=== PATIENT | female | born 1955 | race African-American/Black ===

== ENCOUNTER 2021-05-23 07:04 | Day surgery (SDC) | payer BC ==
[2021-05-21 14:11] VITALS: BMI 30.2
[2021-05-23] MEDS ORDERED: ceFAZolin SODIUM 1 GM VIAL ONE ×3 (07:22→22:49)
[2021-05-23] MEDS ORDERED: VANCOMYCIN 1,000 MG VIAL (RESTRICTED TO ID ONLY) ONE (07:22)
[2021-05-23] MEDS ORDERED: TRANEXAMIC ACID 1000 MG/10 ML VIAL ONE (07:22)
[2021-05-23] MEDS ORDERED: SUCCINYLCHOLINE CHLORIDE 200 MG/10 ML SYRINGE ONE (07:22)
[2021-05-23] MEDS ORDERED: PROPOFOL 20 ML ONE (07:22)
[2021-05-23] MEDS ORDERED: BUPIVACAINE HCL 50 ML ONE (07:57)
[2021-05-23] MEDS ORDERED: MIDAZOLAM HCL 2 MG/2 ML SINGLE DOSE VIAL ONE (08:15)
[2021-05-23] MEDS ORDERED: BUPIVACAINE HCL/PF 0.5% (5MG/ML) 10 ML VIAL ONE (08:15)
[2021-05-23] MEDS ORDERED: BUPIVACAINE LIPOSOME/PF (EXPAREL) 266 MG/20 ML VIAL ONE (08:15)
[2021-05-23] MEDS ORDERED: SODIUM CHLORIDE 0.9% P/F 10 ML VIAL IJ ONE (08:16)
[2021-05-23] MEDS ORDERED: ONDANSETRON 4 MG/2 ML VIAL ONE (09:21)
[2021-05-23] MEDS ORDERED: DEXAMETHASONE SOD PHOSPHATE 4 MG/1 ML VIAL ONE (09:21)
[2021-05-23] MEDS ORDERED: oxyCODONE HCL 5 MG TABLET PO PRN ×2 (12:38)
[2021-05-23] MEDS ORDERED: ONDANSETRON 4 MG/2 ML VIAL IVPUSH PRN (12:38)
[2021-05-23] MEDS ORDERED: MAGNESIUM HYDROX 2400MG/30ML ORAL SUSPENSION 30 ML CUP PO PRN (13:01)
[2021-05-23] MEDS ORDERED: MAG HYDROX/AL HYDROX/SIMETH 30 ML UNIT-DOSE CUP PO PRN (13:01)
[2021-05-23] MEDS ORDERED: LACTATED RINGERS SOLUTION 1,000 ML IV SCH (13:15)
[2021-05-23] MEDS ORDERED: DEXTROSE 5%-WATER - 100 ML IVPB ONE ×2 (17:47→22:49)
[2021-05-23] MEDS: CEFAZOLIN 2 GM in DEXTROSE 5%-WATER - 100 ML IVPB SCH ×2 (17:52→22:56)
[2021-05-23] MEDS: SENNOSIDES/DOCUSATE COMBO (SENNA PLUS) TABLET (UD) PO SCH (21:28)
[2021-05-23] MEDS: ROSUVASTATIN CA 10 MG TABLET PO SCH (21:28)
[2021-05-23] MEDS: oxyCODONE HCL 10 MG SUSTAINED ACTING TABLET PO SCH (21:28)
[2021-05-23] MEDS: ASPIRIN 81 MG CHEWABLE TABLETS PO SCH (21:28)
[2021-05-23] MEDS: ACETAMINOPHEN 500 MG TABLET (FP) PO SCH (23:49)
[2021-05-24] MEDS: CEFAZOLIN 2 GM in DEXTROSE 5%-WATER - 100 ML IVPB SCH (06:05)
[2021-05-24] MEDS: ACETAMINOPHEN 500 MG TABLET (FP) PO SCH ×3 (06:06→17:42)
[2021-05-24] MEDS: ONDANSETRON 4 MG/2 ML VIAL IVPUSH PRN ×2 (06:09→13:43)
[2021-05-24 08:32] LABS: CALCIUM 8.6 mg/dl (8.5-10); CREATININE 0.6 mg/dl (0.55-1.3)
[2021-05-24] MEDS: ASPIRIN 81 MG CHEWABLE TABLETS PO SCH ×2 (09:59→21:11)
[2021-05-24] MEDS: SENNOSIDES/DOCUSATE COMBO (SENNA PLUS) TABLET (UD) PO SCH ×2 (09:59→21:11)
[2021-05-24] MEDS: oxyCODONE HCL 10 MG SUSTAINED ACTING TABLET PO SCH ×2 (10:00→21:15)
[2021-05-24] MEDS: PANTOPRAZOLE 40 MG TABLET PO SCH (10:00)
[2021-05-24] MEDS: CELECOXIB 200 MG CAPSULE PO SCH (10:00)
[2021-05-24 10:32] LABS: HEMATOCRIT 36.2 % (32.4-45.2); HEMOGLOBIN 11.7 GM/dL (10.7-15.3); MCH 27.9 pg (25.7-33.7); MCHC 32.4 g/dl (32.0-36.0); MEAN PLT VOLUME 8.5 fl (7.5-11.1); PLATELET COUNT 235 10^3/uL (134-434); RBC 4.21 M/mm3 (3.60-5.2); WHITE BLOOD COUNT 10.9 K/mm3 (4.0-10.0)
[2021-05-24] MEDS: ROSUVASTATIN CA 10 MG TABLET PO SCH (21:11)
[2021-05-25] MEDS: ACETAMINOPHEN 500 MG TABLET (FP) PO SCH ×2 (06:19)
[2021-05-25 09:40] LABS: HEMATOCRIT 36.6 % (32.4-45.2); HEMOGLOBIN 12.1 GM/dL (10.7-15.3); MCH 28.4 pg (25.7-33.7); MCHC 33.2 g/dl (32.0-36.0); MEAN CELL VOLUME 85.4 fl (80-96); MEAN PLT VOLUME 8.2 fl (7.5-11.1); PLATELET COUNT 228 10^3/uL (134-434); RBC 4.28 M/mm3 (3.60-5.2); RDW 14.1 % (11.6-15.6)
[2021-05-25] MEDS: PANTOPRAZOLE 40 MG TABLET PO SCH (11:31)
[2021-05-25] MEDS: CELECOXIB 200 MG CAPSULE PO SCH (11:31)
[2021-05-25] MEDS: ASPIRIN 81 MG CHEWABLE TABLETS PO SCH (11:31)
[2021-05-25] MEDS: SENNOSIDES/DOCUSATE COMBO (SENNA PLUS) TABLET (UD) PO SCH (11:32)
[2021-05-25] MEDS: oxyCODONE HCL 10 MG SUSTAINED ACTING TABLET PO SCH (11:32)
[2021-05-25 12:19] VITALS: BP 109/54; PULSE 96; TEMP 98.9
== END 2021-05-25 14:30 | disposition home or self-care (01) ==
LOC: EDBD → FASUSAT 07:04 → EDSTATUS 08:00 → FM/S 14:15 → FASUSAT 05-25 14:30
PROVIDERS: ATTEND Orthopaedic Surgery Orthopaedic Surgery of the Spine
PROC: 0SRD0J9 Replacement of Left Knee Joint with Synthetic Substitute, Cemented, Open Approach (ICD-10-PCS; principal; 2021-05-23 10:02)
DX: M17.12 Unilateral primary osteoarthritis, left knee (principal)
CPT/HCPCS: 27447; C1776; 36415; 73560-TC-LT-FY; 80048; 85027; 88305-TC; 88311-TC; 94760; 97010-GP; 97116-GP; 97162-GP